=== PATIENT | female | born 1995 | race Caucasian/White ===

== ENCOUNTER 2019-10-26 06:30 | Day surgery (SDC) | payer OTHER ==
[~2019-10-26 06:30] MED LIST: TYLENOL COD
== END 2019-10-26 21:15 | disposition home or self-care (01) ==
LOC: CIR.AMB 06:30
PROVIDERS: ATTEND Orthopaedic Surgery Hand Surgery
DX: S62.605A Fracture of unspecified phalanx of left ring finger, initial encounter for closed fracture (principal); S56.116A Strain of flexor muscle, fascia and tendon of left ring finger at forearm level, initial encounter; Z20.828 Contact with and (suspected) exposure to other viral communicable diseases